=== PATIENT | female | born 1975 | race Caucasian/White ===

== ENCOUNTER 2020-04-03 11:56 | Inpatient (IN) | payer OTHER ==
[~2020-04-03] VITALS: Ht 175.3 cm; Wt 117.9 kg
[2020-04-03] MEDS ORDERED: LEVOXYL137 MCG PO (12:16)
[2020-04-03] MEDS ORDERED: MELATONIN10 MG PO (12:16)
[2020-04-03] MEDS ORDERED: VITAMIN D350 MC2 PO (12:18)
[2020-04-03] MEDS ORDERED: BIOTIN5000 MCG PO (12:18)
[2020-04-03] MEDS ORDERED: BENADRYL25 MG PO (12:18)
--- NOTE | 2020-04-03 16:30 | NUR ---
REPORT FROM Simona ELDER IN ER ON THIS PT. THIS RN MOVED PT TO RM 130 FROM ER. ORIENTED TO ROOM, CALL LIGHT IN REACH. BORDER DRAWN ON RLE PER ORDERS, ELEVATED LEG ON PILLOW. TAUGHT PT AND PROVIDED IS FOR ENC TCDB. PT IV BOLUS FUSING. BELONGINGS AT BEDSIDE, CELL PHONE, GLASSES AND WATCH. CLOTHING IN CLOSET. COLD WATER TO PT FOR COMFORT. PT SLEEPY. RN ATTEMPTED TO CALL CELL TO NOTIFY OF ISOLATION PRECAUTIONS BUT NO ANSWER AT HOME OR CELL. PT SETTLING IN.
--- NOTE | 2020-04-03 18:36 | EKG ---
[facility] [address] [place], [place] [address] Signed Normal sinus rhythm Normal ECG No previous ECGs available Confirmed by ARABELLA PATTERSON DO ([id number]) on 04/03/2020 6:36:45 PM Electronically Signed By: ARABELLA PATTERSON DO 04/03/20 1836 PATIENT NAME: FERMÍN QURESHI Electrocardiogram DATE OF : 77 PHYSICIAN: ARABELLA PATTERSON DO REPORT #: [id number] REPORT IS CONFIDENTIAL AND NOT TO BE RELEASED WITHOUT AUTHORIZATION
--- NOTE | 2020-04-03 19:08 | NUR ---
report to evening or night nurse supervisor, pt eyes closed rrr. call light in reach. kelly did drop off her blanket, pillow and phone pediatric psychologist - understands he can call her and or the rn desk to get updates.
--- NOTE | 2020-04-03 19:15 | NUR ---
Report received, orders acknowledged. Patient laying in bed, eyes closed. HR in the 90's, RR of 22, and SpO2 of 100% on RA. Call light within reach.
--- NOTE | 2020-04-03 20:00 | NUR ---
Patient laying in bed, eyes closed. Rouses easily to voice. Vitals taken, assessment complete. Redness noted on RLE, hot to the touch. Outline drawn around infection, redrawn to note slight deviation outside of original outline. Temp 100.0. Lactic acid drawn, sent to lab. Patient reports pain of 8/10 between shoulder blades, prn pain medication to be given. Denies nausea, requests clear liquid tray. IV vanco infusing at 220 mls/hr, LR infusing at 125 mls/hr. No further needs at this time, call light within reach.
--- NOTE | 2020-04-03 20:30 | NUR ---
Patient reports pain of 8/10 between shoulder blades, prn pain medication given. Patient denies pain in RLE, as long as leg is kept still. Clear liquid tray delivered. Patient up to toilet with SBA, steady on feet but walks gingerly on right leg. Reports pain in RLE increases with movement. Voids 650 mls. Returns to bed with SBA. Water refreshed, denies further needs. Lights turned off, call light within reach.
--- NOTE | 2020-04-03 21:15 | NUR ---
Patient laying in bed, eyes closed. Rouses easily to voice. Patient reports drowsiness after taking prn pain medication. Lights off in room, denies needs at this time. Call light within reach.
--- NOTE | 2020-04-03 22:14 | NUR ---
Patient sleeping in bed, respirations even and unlabored. HR in the 90's, RR in the mid-20's, SpO2 of 100% on RA. Call light within reach.
--- NOTE | 2020-04-03 23:31 | NUR ---
Patient sleeping in bed, respirations even and unlabored. HR in the 80-90's, RR of 24, SpO2 of 97% on RA. Call light within reach.
--- NOTE | 2020-04-04 00:41 | NUR ---
Patient sleeping in bed, respirations even and unlabored. Rouses easily to voice. Vitals taken, assessment complete. Temp of 100.3, prn acetaminophen given. RLE outlined in marker, redness noted and hot to the touch. Patient reports the right leg "feels tight." Patient up to BSC, voids 500 mls. Returns to bed with SBA. IV vanco infusing at 275 mls/hr. LR infusing at 125 mls/hr. Water refreshed, denies further needs at this time. Call light within reach.
--- NOTE | 2020-04-04 01:30 | NUR ---
Patient sleeping in bed, respirations even and unlabored. HR in the 80's, RR of 24, SpO2 of 98% on RA. Call light within reach.
--- NOTE | 2020-04-04 02:26 | NUR ---
Patient sleeping in bed, respirations even and unlabored. Rouses easily to voice. New bag of LR hung, infusing at 125 mls/hr. Patient reports pain of 5/10, denies need for prn pain medication at this time. No further needs, call light within reach.
--- NOTE | 2020-04-04 03:53 | NUR ---
Patient sleeping in bed, respirations even and unlabored. HR in the 70's, RR of 20, SpO2 of 98% on RA. Call light within reach.
--- NOTE | 2020-04-04 04:32 | NUR ---
Patient sleeping in bed, respirations even and unlabored. HR in the 80's, RR of 22, SpO2 of 99% on RA. Call light within reach.
--- NOTE | 2020-04-04 05:15 | NUR ---
Patient sleeping in bed, respirations even and unlabored. Rouses easily to voice. LR infusing at 125 mls/hr. Vital signs taken, assessment complete. RLE continues to be hot to the touch but less redness noted. Patient reports "less tightness" in RLE. Redness remains within borders of outline, except at the ankle - new outline marked. Labs drawn and sent off. Patient up to [facility], voided 1000 mls. Patient reports "it is easier to put weight on my right leg." Returns to bed. Warm cloth provided for face. Patient reports pain of 7/10 between shoulders, prn pain medication given. Water refreshed, denies further needs at this time. Call light within reach.
--- NOTE | 2020-04-04 08:14 | NUR ---
Medications reconciled
--- NOTE | 2020-04-04 10:21 | NUR ---
PT AT THIS TIME IS STILL TOLERABLE STATED BY PT. NO NEW CONCERNS NOTED AT THIS TIME.
--- NOTE | 2020-04-04 13:45 | NUR ---
PT STATED THAT SHE IS FEELING A BIT BETTER OVERALL. V/S ARE WDL, REDNESS ON RLE HAS LESSEND. REDNESS ON UPPER RIGHT THIGH THAT WAS MARKED THIS MORNING IS NOT PRESENT AT THIS TIME. URINE OUTPUT IS VERY GOOD. NO NEW CONCERNS WERE NOTED.
--- NOTE | 2020-04-04 14:36 | NUR ---
Spoke with Edie by phone. She states she lives in [place] in a one story home with her spouse, Chandana, and her two teenagers. Denies use of DME and works at [employer]s. She has had limited hours with [employer] and then not worked in the last week due to illness. She is aware of [employer] and their services. Also gave her the names of [employer] She states money is short, but they aren't there yet. Plans on going home on discharge as her family are support and will assist her.
--- NOTE | 2020-04-04 16:50 | NUR ---
PT ARRIVED AT THIS TIME FOR TRANSFER FROM CCU TO ROOM 116. SHE IS ALERT AND ORIENTED. RED AREAS ON RIGHT LEG OUTLINED.
--- NOTE | 2020-04-04 16:54 | NUR ---
PT LEFT CCU AT 1650. PT NOW IN ROOM 116.
--- NOTE | 2020-04-04 17:06 | NUR ---
Vancomycin per pharmacy with goal trough 15-20. Trough drawn 04/04/20 @ 1530 prior to 4th dose = 13.8. Keep current dosing of 1250mg IV q 8 hrs as may not have reached steady state & trough may increase. Pharmacy will continue to monitor
--- NOTE | 2020-04-04 17:47 | NUR ---
ASSUMED CARE OF THIS PATIENT AT THIS TIME, PT IS RESTING COMFORTABLE ON BED, DENIES ANY NEEDS, VANCOMYCIN INFUSING, WATCHING TV PROGRAM, LLE ELEVATED ON PILLOW, EDEMA AND REDNES IS IMPROVING. CALL LIGHT IN EASY REACH.
--- NOTE | 2020-04-04 19:02 | NUR ---
PT DENIES ANY NEEDS, IN TO VISIT AND BROUGHT BLIZARD ICECREAM FOR SNACK.
--- NOTE | 2020-04-04 19:15 | NUR ---
SHIFT REPORT RECEIVED FROM RISSA AGEE AT BEDSIDE. PT AWAKE AND RESTING IN BED. IV FLUIDS INFUSING, SITE WNL. REDDNESS WITHIN OUTLINE, WILL MONITOR. PT DENIES ADDITIONAL CONCERNS OR NEEDS. BOARD UPDATED, CALL LIGHT IN REACH.
--- NOTE | 2020-04-04 20:20 | NUR ---
VERBAL ORDER READ BACK FROM LETICIA COLE TO Kenneth'C ISOLATION ORDERS.
--- NOTE | 2020-04-04 21:00 | NUR ---
ASSESSMENT COMPLETE, SCHEDULED MEDS GIVEN (SEE EMAR). PT A/OX4, VSS. I&O'S DONE. REDDNESS TO RLE WITHIN OUTLINE, RECEDING PER PT. WARM TO THE TOUCH. PRN TYLENOL GIVEN FOR 4-5/10 PAIN. IV FLUIDS INFUSING, SITE WNL. CALL LIGHT IN REACH.
--- NOTE | 2020-04-05 00:05 | NUR ---
pt iv r ac distal occluded. pt did not want to use other iv site because it was sore from [facility]. repositioned arm for comfort and provided pillow for support. pt thankful and rn placed side rails up x2. call light in reach - asked pt to call for pump alarm.
--- NOTE | 2020-04-05 00:10 | NUR ---
SCHEDULED [facility] INFUSING, SITE WNL. PT DENIES BURN OR PAIN WHEN FLUSHED. CALL LIGHT IN REACH.
--- NOTE | 2020-04-05 02:25 | NUR ---
PT RESTING IN BED WITH EYES CLOSED. RR EVEN AND UNLABORED. NO DISTRESS NOTED, CALL LIGHT IN REACH.
--- NOTE | 2020-04-05 06:02 | NUR ---
ASSESSMENT COMPLETE, VSS. PT DENIES PAIN AND NAUSEA. IV SITE X2 WNL, PT REPORTS SOME TIGHTNESS IN RUE, SITE WNL. NO SIGNS OF INFILTRATION. WILL MONITOR. REDDNESS REMAINS WITHIN OUTLINE. NO ADDITIONAL NEEDS, CALL LIGHT IN REACH.
--- NOTE | 2020-04-05 08:15 | NUR ---
UP TO RECLINER FOR BREAKFAST, LEGS ELEVATED, REDNESS AND SWELLING IMPROVED, NOTED PT CONT. TO HAVE SMALL AREA OF REDNESS UPPER R THIGH NEAR GROIN AREA, NO INCREASE IN SIZE. WILL ADDRESS WITH MD. SCHEDULED ANIRUDH STARTED. DENIES ANY NEEDS.
--- NOTE | 2020-04-05 09:33 | NUR ---
DR PATTERSON IN TO SEE PT, ORDER TO SL FLUIDS, WILL FINISH IV ABX TODAY THAN DC HOME THIS EVENING.
[2020-04-05] MEDS ORDERED: DOXYCYCLINE HY100 MG PO (09:36)
--- NOTE | 2020-04-05 10:36 | NUR ---
IVF TO SL, UP TO SHOWER.
--- NOTE | 2020-04-05 13:15 | NUR ---
spoke with Edie. She plans on going home with her spouse. Denies needs as he will assist her. She is covid neg and aware.
--- NOTE | 2020-04-05 16:47 | NUR ---
PT HAS COMPLETED LAST DOSE OF IV ANCEF AND VANCO, DISCHARGE INSTRUCTION GIVEN, VERBALIZES UNDERSTANDING OF MEDICATIONS AND FOLLOWUP APPOINTMENT SCHEDULED. DENIES ANY CONCERNS, HAS SPOKE WITH PHARMACY. WAITING FOR TO ARRIVE TO TRANSPORT HOME.
== END 2020-04-05 16:57 | disposition home or self-care (01) | DRG 872 ==
LOC: ED 11:56 → CCU 15:37 → MS 04-04 16:50
PROVIDERS: ADMIT Student in an Organized Health Care Education/Training Program
PROC: 8E0ZXY6 Isolation (ICD-10-PCS; principal; 2020-04-03)
DX: A41.9 Sepsis, unspecified organism (principal); L03.115 Cellulitis of right lower limb; R65.20 Severe sepsis without septic shock; E03.9 Hypothyroidism, unspecified; R06.00 Dyspnea, unspecified; Z20.828 Contact with and (suspected) exposure to other viral communicable diseases; Z79.899 Other long term (current) drug therapy
CPT/HCPCS: 36415; 51701; 71045; 80048; 80053; 80202; 81001; 83605; 83735; 85025; 93005; 93010; 93971; 99285-25; C9803; J0690; J0696; J1170; J1650; J3370; J3475; J7030; J7060; J7121; U0002

== ENCOUNTER 2024-08-25 11:20 | Day surgery (SDC) | payer OTHER ==
[~2024-08-25] VITALS: Ht 175.3 cm; Wt 120.5 kg
[~2024-08-25 11:20] MED LIST: BENADRYL25 MG PO; BIOTIN5000 MCG PO; DOXYCYCLINE HY100 MG PO; IBLOOD GLUCOSE TEST STRIP 1 EA TEST VI PRN; LACTATED RINGER'S 1,000 ML IV SCH; LASIX20 MG PO; LEVOXYL137 MCG PO; LIDOCAINE HCL 1% 5 ML SDV INJ ONE; MELATONIN10 MG PO; METOPROLOL SUCC25 MG PO; MIDAZOLAM HCL 5 MG/5 ML VIAL IV PRN; VITAMIN D350 MC2 PO; fentaNYL citrate 100 MCG/2 ML VIAL IV PRN
[2024-08-25] MEDS ORDERED: fentaNYL citrate 100 MCG/2 ML VIAL ONE (11:23)
[2024-08-25] MEDS ORDERED: MIDAZOLAM HCL 5 MG/5 ML VIAL ONE (11:24)
[2024-08-25 11:29] VITALS: BP 143/78
[2024-08-25] MEDS ORDERED: HAIR SKIN NAIL1 EACH PO (11:32)
[2024-08-25] MEDS ORDERED: VITAMIN B121000 MCG PO (11:32)
[2024-08-25] MEDS ORDERED: MELOXICAM7.5 MG PO (11:32)
[2024-08-25] MEDS ORDERED: DAILY VITAMIN1 EAC3 PO (11:32)
[2024-08-25] MEDS ORDERED: MAG GLYCINATE100 MG PO (11:33)
[2024-08-25] MEDS ORDERED: BENADRYL ALLERG50 MG PO (11:33)
[2024-08-25] MEDS ORDERED: CEFAZOLIN SODIUM 3 GM/30 ML SYR IV SCH (12:00)
--- NOTE | 2024-08-25 13:09 | NUR ---
08/25/24 1309 Sheets,Deya 1256 PT ARRIVED TO PACU ON 2L VIA NC, PT AWAKE AND TALKING TO RN. PT DENIES CONCERNS AND IS ENCOURAGED TO PASS GAS NEEDED. VSS. 1302 O2 REMOVED. HOB INCREASED SLIGHTLY.
[2024-08-25 13:39] VITALS: BP 136/87
--- NOTE | 2024-08-27 14:42 | OR ---
[facility] [address] [place], [place] [address] Signed DATE OF OPERATION: 08/25/2024 SURGEON: Az Villarreal MD PREOPERATIVE DIAGNOSIS: Episodic painless rectal bleeding (bright). POSTOPERATIVE DIAGNOSES: 1. Minimal sigmoid diverticulosis. 2. External hemorrhoids without internal hemorrhoids. PROCEDURE: Total colonoscopy to cecum with biopsy of rectum. ANESTHESIA: Intravenous sedation; fentanyl 100 mcg and Versed 8 mg. INDICATION: This 49-year-old white woman is a patient of MAHSA Salazar. She has noted to have episodic rectal bleeding, which is painless and bright. The patient describes a "forced of hemorrhoids" from prior childbirth. She is admitted at this time to undergo colonoscopy to better characterize the source for bleeding. She understands risk of bleeding, infection, and perforation related to colonoscopy and wished to proceed. FINDINGS: There was no sign of extensive hemorrhoidal disease of the anorectum, though she did have a few external hemorrhoids. Colon was well prepped. There were few diverticula of the sigmoid. Biopsies taken of the rectum to assess for occult proctitis. There is no clear evidence of lesion to account for bleeding. PROCEDURE IN DETAIL: The patient was brought to the endoscopy suite and placed in lateral decubitus position, given intravenous sedation to the point of slurred speech and nystagmus. Digital rectal examination was normal. External examination showed some external hemorrhoidal tags, but nothing too extensive. An Olympus video colonoscope was passed in the rectum and manipulated throughout the colon noting a few diverticula of the sigmoid and left colon. Scope was then advanced to the cecum. The ileocecal valve and appendiceal orifice were normal. The scope was withdrawn from that point and examination undertaken showed no sign of abnormality other than the diverticula. Retroflexed view of the rectum was normal. The scope was withdrawn and examination of the anal area and external perianal Electronically Signed By: AZ VILLARREAL MD 08/27/24 1442 PATIENT NAME: FERMÍN QURESHI OPERATIVE REPORT DATE OF : [birth year] REPORT #: [id number] PHYSICIAN: AZ VILLARREAL MD PCP: ABRIL BENNETT PA-C REPORT IS CONFIDENTIAL AND NOT TO BE RELEASED WITHOUT AUTHORIZATION [address] [address] Signed area showed some external hemorrhoidal disease, but no sign of bleeding or other issue at this time. A biopsy was taken of the rectum to rule out occult proctitis as noted. Scope was removed. The patient was taken to recovery room in good condition. CONCLUDING DIAGNOSIS: Rectal bleeding of uncertain etiology; a few diverticula and some external hemorrhoidal changes. PLAN: Recommend high-fiber diet. If repeat bleeding should occur, we would see her promptly and consider for endoscopy and possible banding as appropriate. We will check pathology report. She will return to the ongoing care of PA. Martin MD MARY Paul/FLEX /[id number] cc: Abril Bennett PA-C Copies: ABRIL BENNETT PA-C ~ Electronically Signed By: AZ VILLARREAL MD 08/27/24 1442 PATIENT NAME: FERMÍN QURESHI OPERATIVE REPORT DATE OF : [birth year] REPORT #: [id number] PHYSICIAN: AZ VILLARREAL MD PCP: ABRIL BENNETT PA-C REPORT IS CONFIDENTIAL AND NOT TO BE RELEASED WITHOUT AUTHORIZATION
--- NOTE | 2024-08-29 10:27 | PATH ---
[facility] [address] [place], [place] [address] Signed SPECIMEN(S): A RECTUM SPECIMEN SOURCE: A. RECTUM CLINICAL HISTORY: Rectal bleeding, diverticula, external hemorrhoid tissue FINAL PATHOLOGIC DIAGNOSIS: Rectum biopsy: - Colonic mucosa with edema and congestion. - Negative for chronic active inflammation or dysplasia. NA MICROSCOPIC EXAMINATION: Histologic sections of all submitted blocks are examined by light microscopy. These findings, together with the gross examination, support the pathologic diagnosis. GROSS DESCRIPTION: The specimen, labeled and designated "Aneesh rectum biopsy," is received in formalin and consists of two marquez soft tissue fragments, ranging from 0.2-0.3 cm. Entirely submitted in (A1). VB (under the direct supervision of a pathologist) The Gross Description was prepared using a voice recognition system. The report was reviewed for accuracy; however, sound-alike word errors, addition and/or deletions may occur. If there is any question about this report, please contact Client Services. ADDITIONAL NOTES: Immunohistochemical and/or in situ hybridization studies if performed in this case included appropriate positive controls that reacted as expected. This test was developed and its performance characteristics determined by [employer]. It has not been cleared or approved by the U.S. Food and Drug Administration. The FDA has determined that such clearance or approval is not necessary. This test is used for clinical purposes. It should not be regarded as investigational or for research. [facility] [facility] is certified under the Clinical Laboratory Improvement Amendments of 1988 (CLIA) as qualified to perform high complexity clinical laboratory testing. PATIENT NAME: FERMÍN QURESHI PATHOLOGY DATE OF : [birth year] REPORT #: [id number] PHYSICIAN: SHIREEN KOENIG PCP: JESUS MANZANO PA-C REPORT IS CONFIDENTIAL AND NOT TO BE RELEASED WITHOUT AUTHORIZATION [address] [place], [place] [address] Signed PERFORMING LABORATORY: Technical component was performed by [facility] [place] [address] (CLIA# [id number]). Professional interpretation was performed by [facility], [address] [place] [address] (CLIA#: [id number]). Diagnostician: Adrianna Gibbs MD Pathologist Electronically Signed 08/29/2024 Copies: ~ PATIENT NAME: FERMÍN QURESHI PATHOLOGY DATE OF : [birth year] REPORT #: [id number] PHYSICIAN: SHIREEN KOENIG PCP: JESUS MANZANO PA-C REPORT IS CONFIDENTIAL AND NOT TO BE RELEASED WITHOUT AUTHORIZATION
== END 2024-08-25 13:50 | disposition home or self-care (01) ==
LOC: OPS 11:20 → DS 11:20 → OPS 12:15
PROVIDERS: ATTEND Surgery
PROC: 0DBP8ZX Excision of Rectum, Via Natural or Artificial Opening Endoscopic, Diagnostic (ICD-10-PCS; principal; 2024-08-25 12:15)
DX: K64.4 Residual hemorrhoidal skin tags (principal); K57.30 Diverticulosis of large intestine without perforation or abscess without bleeding; E66.01 Morbid (severe) obesity due to excess calories; E03.9 Hypothyroidism, unspecified; I10 Essential (primary) hypertension; Z68.39 Body mass index [BMI] 39.0-39.9, adult
CPT/HCPCS: 99153; G0500; J0690; J2250; J3010; J7121

== ENCOUNTER 2025-06-18 13:36 | Emergency (ER) | payer OTHER ==
[~2025-06-18] VITALS: Ht 175.3 cm; Wt 113.5 kg
[~2025-06-18 13:36] MED LIST changes: +BENADRYL ALLERG50 MG PO; +DAILY VITAMIN1 EAC3 PO; +HAIR SKIN NAIL1 EACH PO; -IBLOOD GLUCOSE TEST STRIP 1 EA TEST VI PRN; -LACTATED RINGER'S 1,000 ML IV SCH; -LIDOCAINE HCL 1% 5 ML SDV INJ ONE; +MAG GLYCINATE100 MG PO; +MELOXICAM7.5 MG PO; -MIDAZOLAM HCL 5 MG/5 ML VIAL IV PRN; +VITAMIN B121000 MCG PO; -fentaNYL citrate 100 MCG/2 ML VIAL IV PRN
[2025-06-18] MEDS ORDERED: HYDROXYZINE HCL25 MG PO (13:58)
[2025-06-18] MEDS ORDERED: PHENTERMINE H37.5 M1 PO (13:58)
[2025-06-18] MEDS ORDERED: ALLOPURINOL200 MG PO (13:58)
[2025-06-18] MEDS ORDERED: OXYCODONE-ACET1 EAC3 PO (13:58)
[2025-06-18] MEDS ORDERED: MELOXICAM15 MG PO (13:58)
[2025-06-18] MEDS ORDERED: GABAPENTIN100 MG PO (13:59)
[2025-06-18 14:39] LABS: BASOPHILS 0.3 % (0.1-1.2); EOSINOPHILS 1.6 % (0.7-5.8); LYMPHOCYTES 31.1 % (19.3-51.7); MCH 31.4 PG (25.6-32.2); MCHC 34.1 g/dL (32.2-35.5); MCV 92.2 fL (79.4-94.8); MONOCYTES 10.2 % (4.7-12.5); NEUTROPHILS 56.3 % (34.0-71.1); RBC 3.34 M/uL (3.93-5.22)
[2025-06-18 14:56] LABS: ALT (SGPT) 20.0 U/L (14-59); AST (SGOT) 18.0 U/L (15-37); GLOMERULAR FILTRATION RATE,EST 100.0 mL/min (>60); PROTEIN, TOTAL 6.3 g/dL (6.4-8.2); UREA NITROGEN 5.0 mg/dL (7-18)
[2025-06-18 15:45] LABS: ERYTHROCYTE SEDIMENTATION RATE 67
[2025-06-18 16:21] VITALS: BP 123/78
== END 2025-06-18 16:21 | disposition home or self-care (01) ==
LOC: ED 13:36
PROVIDERS: Emergency Medicine
DX: H57.052 Tonic pupil, left eye (principal); D64.9 Anemia, unspecified; Z87.891 Personal history of nicotine dependence; Z98.890 Other specified postprocedural states; Z88.5 Allergy status to narcotic agent; Z79.1 Long term (current) use of non-steroidal anti-inflammatories (NSAID); Z79.890 Hormone replacement therapy; Z79.899 Other long term (current) drug therapy
CPT/HCPCS: 36415; 70450; 70496; 70498; 80053; 85025; 85651; 99284-25; Q9967